=== PATIENT | male | born 1960 | race Caucasian/White ===

== ENCOUNTER → 2021-01-08 | Outpatient (CLI) | payer OTHER ==
[~2021-01-08] MED LIST: Alprazolam Xr0.5 MG PO; Budeprion Xl300 MG PO; IBUP400 PO; OLAN2.5 PO
== END | disposition home or self-care (01) ==
LOC: LAB SHORT 07:40
DX: L81.4 Other melanin hyperpigmentation (principal)
CPT/HCPCS: 88305